=== PATIENT | male | born 2000 | race American Indian/Alaskan Native ===

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

== ENCOUNTER 2022-02-03 21:28 | Emergency (ER) | payer SELFPAY ==
[2022-02-03 22:17] VITALS: BP 107/63
--- NOTE | 2022-02-03 22:43 | XRay Report ---
CHEST 2 VIEWS INDICATION / CLINICAL INFORMATION: CHEST PAIN. COMPARISON: None available. FINDINGS: SUPPORT DEVICES: None. HEART / MEDIASTINUM: No significant abnormality. LUNGS / PLEURA: No significant pulmonary abnormality. No significant pleural effusion. No pneumothora x. ADDITIONAL FINDINGS: No significant additional findings. IMPRESSION: 1. No acute abnormality of the chest. Signer Name: Evin Enriquez MD Signed: 02/03/2022 10:38 PM Workstation Name: [id number]
--- NOTE | 2022-02-04 18:17 | Electrocardiograph Report ---
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
== END 2022-02-06 11:14 | disposition left against medical advice (07) ==
LOC: ED 21:28
DX: R07.9 Chest pain, unspecified (principal); Z53.21 Procedure and treatment not carried out due to patient leaving prior to being seen by health care provider
CPT/HCPCS: 71046; 93005